=== PATIENT | male | born 1995 | race Caucasian/White ===

== ENCOUNTER 2019-03-31 14:41 | Outpatient (CLI) | payer BC ==
--- NOTE | 2019-03-31 16:43 | RAD ---
EXAM: LEFT RIBS THREE VIEWS: 03/31/19 HISTORY: Reinjury of left ribs with left rib pain. COMPARISON: 03/23/2019. FINDINGS: No convincing evidence for acute left rib fracture. No pneumothorax or pleural effusion. IMPRESSION: No convincing evidence for acute left rib fracture or other acute process. No significant change from 03/23/19. POS: [facility]
== END 2019-03-31 14:42 | disposition home or self-care (01) ==
LOC: MADRAD 14:41
PROVIDERS: ATTEND Family Medicine
DX: R07.81 Pleurodynia (principal)

== ENCOUNTER 2019-09-20 18:55 | Emergency (ER) | payer BC, SELFPAY ==
[2019-09-20] MEDS ORDERED: Lidocaine 1% w/Epinephrine 1:100K 20 ML VIAL ONE (19:13)
== END 2019-09-20 19:40 | disposition home or self-care (01) ==
LOC: MADERS 18:55
DX: S61.213A Laceration without foreign body of left middle finger without damage to nail, initial encounter (principal); F17.220 Nicotine dependence, chewing tobacco, uncomplicated; W26.0XXA Contact with knife, initial encounter
CPT/HCPCS: 12001

== ENCOUNTER 2019-10-27 14:32 | Emergency (ER) | payer SELFPAY ==
[2019-10-27] MEDS ORDERED: Thiamine HCl 200 MG/2 ML VIAL ONE (14:50)
[2019-10-27 14:54] LABS: #Basophils 0.1 thou/uL (0.0-0.2); #Eosinphils 0.1 thou/uL (0.0-0.7); #Lymphocytes 3.5 thou/uL (1.20-3.40); #Monocytes 0.6 thou/uL (0.11-0.59); %Basophils 1.3 % (0.0-1.0); %Eosinophils 1.3 % (0.0-10.0); %Lymphocytes 37.3 % (21.0-51.0); %Monocytes 6.8 % (0.0-10.0); %Neutrophils 53.3 % (42.0-75.0); Hemoglobin 16.4 g/dL (14.0-18.0); Mean Corpuscular HGB CONC 35.1 g/dL (32.0-36.0); Mean Corpuscular Hemoglobin 30.1 pg (27.0-31.0); Mean Corpuscular Volume 85.8 fL (78.0-98.0); Mean Platelet Volume 7.6 fL (7.4-10.4); Platelet Count 260 thou/uL (130-400); Red Blood Cell (RBC) Count 5.46 mill/uL (4.70-6.10); White Blood Cell (WBC) Count 9.4 thou/uL (4.8-10.8)
[2019-10-27 15:05] LABS: ALT (SGPT) 18 U/L (8-55); AST (SGOT) 15 U/L (5-34); Albumin 4.6 g/dL (3.5-5.0); Alkaline Phosphatase 75 U/L (40-110); Anion Gap 16 mmol/L (10-20); BUN (Urea Nitrogen) 8 mg/dL (8.9-20.6); Bilirubin, Total 0.5 mg/dL (0.2-1.2); CK (CPK) 117 U/L (30-200); Calc. Creatinine Clearance 0 mL/min (70-130); Calcium 9.2 mg/dL (7.8-10.44); Carbon Dioxide 25 mmol/L (22-29); Chloride 102 mmol/L (98-107); Globulin 2.5 g/dL (2.4-3.5); Glucose 121 mg/dL (70-105); Potassium 3.1 mmol/L (3.5-5.1); Protein, Total 7.1 g/dL (6.0-8.3); Sodium 140 mmol/L (136-145)
[2019-10-27 15:06] LABS: Acetaminophen Less than 6.0 mcg/mL (10.0-30.0); Alcohol 87 mg/dL (Less than 10); Magnesium 2.1 mg/dL (1.6-2.6); Salicylate Less than 8.0 mg/dL (15.0-30.0)
[2019-10-27] MEDS ORDERED: NS 0.9% w/ 20 MEQ KCL 1,000 ML ONE (15:23)
[2019-10-27] MEDS ORDERED: Sodium Chloride 0.9% 1,000 ML ONE (15:23)
[2019-10-27] MEDS ORDERED: Lorazepam 2 MG/ML VIAL ONE (15:51)
[2019-10-27] MEDS ORDERED: Midazolam HCl 2 mg/2 ml Vial ONE (15:51)
[2019-10-27 16:12] LABS: Bilirubin Negative (Negative); Blood, Urine Small (Negative); Glucose, Urine (Dipstick) Negative (Negative); Ketone, Urine Negative (Negative); Leukocyte Negative (Negative); Nitrite Negative (Negative); Protein, Urine (Dipstick) Negative (Neg-Trace); Urobilinogen 0.2 mg/dL (Less than 2); pH, Urine 6.5 (5.0-9.0)
[2019-10-27 16:14] LABS: Clarity Hazy (Clear)
[2019-10-27 16:16] LABS: RBC/HPF 0-3 HPF (0-3); WBC/HPF 0-3 HPF (0-3)
[2019-10-27 16:17] LABS: Amphetamine Detected (NotDetected); Bacteria/HPF Rare-Few HPF (None Seen); Barbiturates Screen Not Detected (NotDetected); Benzodiazepine Screen Not Detected (NotDetected); Cocaine Metabolite Screen Not Detected (NotDetected); Methadone Not Detected (NotDetected); Methamphetamine Detected (NotDetected); Opiate Screen Not Detected (NotDetected); Oxycodone Screen Not Detected (NotDetected); Phencyclidine (PCP) Not Detected (NotDetected); THC/Cannabinoid Screen Not Detected (NotDetected); Tricyclic Screen Not Detected (NotDetected)
[2019-10-27 16:18] LABS: Medtox Control Line Valid? VALID (VALID)
--- NOTE | 2019-10-27 17:19 | CT ---
Exam: Head CT without contrast HISTORY: Seizure. Altered mental status. COMPARISON: 08/14/2015 FINDINGS: Hemorrhage: No intraparenchymal hemorrhage or extra-axial hematoma. Brain parenchyma: Cortical benitez-white matter differentiation is preserved. No mass effect or midline shift. Basilar cisterns are patent. Ventricular system: Ventricles and sulci are patent and symmetric. Calvarium: Intact. Sinuses and mastoid air cells: Adequate aeration. IMPRESSION: No acute intracranial process.
--- NOTE | 2019-10-27 17:24 | CT ---
Exam: CT cervical spine without contrast HISTORY: Trauma. Pain. COMPARISON: 07/14/2015 FINDINGS: No craniocervical dissociation. Appropriate alignment of the lateral masses of C1 and C2. Intact odon toid process Appropriate alignment of the facets. No abnormal alignment. Endotracheal and nasogastric tube are identified and incompletely evaluated. Soft tissue neck structures: No mass, lymphadenopathy or hematoma. No prevertebral soft tissue swelli ng. Upper mediastinum and lung apices: Unremarkable Central spinal canal: Neural foramina and central spinal canal are patent. Evaluation is limited by t echnique Vertebral bodies: Cervical spine vertebral body height is maintained. No fracture. IMPRESSION: 1. No fracture.
[2019-10-27 17:43] LABS: Lactic Acid 1.5 mmol/L (0.5-2.2)
== END 2019-10-27 21:45 | disposition home or self-care (01) ==
LOC: MADERS 14:32
DX: R56.9 Unspecified convulsions (principal); F10.129 Alcohol abuse with intoxication, unspecified; F15.10 Other stimulant abuse, uncomplicated; E87.6 Hypokalemia; F17.220 Nicotine dependence, chewing tobacco, uncomplicated
CPT/HCPCS: 36415; 51701; 70450; 72125; 80053; 80306; 80307; 81003; 81015; 82550; 83605; 83735; 84443; 85025; 96361; 96365; 96372; 96375; J2060; J2250; J3411; J3480; J7050

== ENCOUNTER 2020-08-24 22:07 | Emergency (ER) | payer SELFPAY ==
[2020-08-24] MEDS ORDERED: Boostrix 0.5 ML (Tdap) VIAL ONE (22:15)
[2020-08-24] MEDS ORDERED: Fluorescein Opthalmic Strip ONE (22:15)
[2020-08-24] MEDS ORDERED: Tetracaine 0.5% PF 4 ML BOT ONE (22:15)
[2020-08-24] MEDS ORDERED: Erythromycin Base 0.5% Ophth Oint 3.5 gm Tube ONE (22:25)
[2020-08-24] MEDS ORDERED: Ibuprofen 800 MG TAB ONE (22:25)
== END 2020-08-24 22:36 | disposition home or self-care (01) ==
LOC: MADERS 22:07
DX: H18.891 Other specified disorders of cornea, right eye (principal); Z23 Encounter for immunization; F17.220 Nicotine dependence, chewing tobacco, uncomplicated
CPT/HCPCS: 90471; 90715

== ENCOUNTER 2020-10-24 09:37 | Emergency (ER) | payer SELFPAY ==
[2020-10-24] MEDS ORDERED: Sodium Chloride 0.9% 1,000 ML ONE (10:02)
[2020-10-24 10:29] LABS: #Basophils 0.1 thou/uL (0.0-0.2); #Eosinphils 0.2 thou/uL (0.0-0.7); #Lymphocytes 2.2 thou/uL (1.20-3.40); #Monocytes 0.5 thou/uL (0.11-0.59); #Neutrophils 2.9 thou/uL (1.40-6.50); %Eosinophils 3.1 % (0.0-10.0); %Lymphocytes 37.4 % (21.0-51.0); %Monocytes 8.9 % (0.0-10.0); %Neutrophils 49.7 % (42.0-75.0); Hemoglobin 17.1 g/dL (14.0-18.0); Mean Corpuscular HGB CONC 34.1 g/dL (32.0-36.0); Mean Corpuscular Hemoglobin 30.1 pg (27.0-31.0); Mean Corpuscular Volume 88.3 fL (78.0-98.0); Mean Platelet Volume 8.3 fL (7.4-10.4); Platelet Count 242 thou/uL (130-400); RBC Distribution Width 11.5 % (11.5-14.5); White Blood Cell (WBC) Count 5.8 thou/uL (4.8-10.8)
[2020-10-24 10:58] LABS: ALT (SGPT) 17 U/L (8-55); AST (SGOT) 14 U/L (5-34); Albumin 4.3 g/dL (3.5-5.0); Alkaline Phosphatase 69 U/L (40-110); Anion Gap 13 mmol/L (10-20); BUN (Urea Nitrogen) 12 mg/dL (8.9-20.6); Bilirubin, Total 0.6 mg/dL (0.2-1.2); CK (CPK) 75 U/L (30-200); Calc. Creatinine Clearance 0 mL/min (70-130); Calcium 9.7 mg/dL (7.8-10.44); Carbon Dioxide 25 mmol/L (22-29); Chloride 104 mmol/L (98-107); Globulin 2.7 g/dL (2.4-3.5); Glucose 91 mg/dL (70-105); Potassium 4.1 mmol/L (3.5-5.1); Sodium 138 mmol/L (136-145)
[2020-10-24 11:33] LABS: Bilirubin Negative (Negative); Blood, Urine Negative (Negative); Clarity Clear (Clear); Glucose, Urine (Dipstick) Negative (Negative); Ketone, Urine Negative (Negative); Leukocyte Negative (Negative); Nitrite Negative (Negative); Protein, Urine (Dipstick) Negative (Neg-Trace); Urobilinogen 0.2 mg/dL (Less than 2); pH, Urine 7.5 (5.0-9.0)
[2020-10-25 00:44] LABS: SARS-CoV-2 PCR by NAA Not Detected (NotDetected)
== END 2020-10-24 12:00 | disposition home or self-care (01) ==
LOC: MADERS 09:37
DX: R50.9 Fever, unspecified (principal); R51.9 Headache, unspecified; R42 Dizziness and giddiness; R53.1 Weakness; R19.7 Diarrhea, unspecified; R53.83 Other fatigue; Z20.822 Contact with and (suspected) exposure to COVID-19; F17.220 Nicotine dependence, chewing tobacco, uncomplicated
CPT/HCPCS: 80053; 81003; 82550; 85025; 99284; J7050; U0003; U0005

== ENCOUNTER 2021-04-24 14:23 | Emergency (ER) | payer SELFPAY ==
[2021-04-25 01:00] LABS: SARS-CoV-2 PCR by NAA Not Detected (NotDetected)
== END 2021-04-24 15:14 | disposition home or self-care (01) ==
LOC: MADERS 14:23
DX: J06.9 Acute upper respiratory infection, unspecified (principal); Z20.822 Contact with and (suspected) exposure to COVID-19; F17.220 Nicotine dependence, chewing tobacco, uncomplicated; Z79.899 Other long term (current) drug therapy
CPT/HCPCS: 99283; U0003; U0005

== ENCOUNTER 2021-11-04 11:21 | Emergency (ER) | payer OTHER, SELFPAY | END 2021-11-04 12:37 | disposition home or self-care (01) | LOC: MADERS 11:21 | DX: S29.012A Strain of muscle and tendon of back wall of thorax, initial encounter (principal); X50.0XXA Overexertion from strenuous movement or load, initial encounter; Y93.F2 Activity, caregiving, lifting | CPT/HCPCS: 99283 ==

== ENCOUNTER 2022-06-16 11:53 | Emergency (ER) | payer SELFPAY | END 2022-06-16 13:46 | disposition left against medical advice (07) | LOC: MADERS 11:53 | DX: Z53.21 Procedure and treatment not carried out due to patient leaving prior to being seen by health care provider (principal) ==

== ENCOUNTER 2024-12-25 11:12 | Emergency (ER) | payer OTHER ==
[2024-12-25] MEDS ORDERED: Pantoprazole 40 MG DR.TAB ONE (11:27)
[2024-12-25 11:38] LABS: #Basophils 0.1 thou/uL (0.0-0.2); #Eosinophils 0.0 thou/uL (0.0-0.7); #Lymphocytes 1.7 thou/uL (1.20-3.40); #Monocytes 0.4 thou/uL (0.11-0.59); #Neutrophils 2.6 thou/uL (1.40-6.50); %Basophils 1.3 % (0.0-1.0); %Eosinophils 0.9 % (0.0-10.0); %Lymphocytes 35.7 % (21.0-51.0); %Monocytes 8.2 % (0.0-10.0); %Neutrophils 53.9 % (42.0-75.0); Hematocrit 51.3 % (42.0-52.0); Hemoglobin 18.2 g/dL (14.0-18.0); Mean Corpuscular Hemoglobin 30.3 pg (27.0-31.0); Mean Corpuscular Volume 85.5 fl (78.0-98.0); Platelet Count 226 10x3/uL (130-400); Red Blood Cell (RBC) Count 6.00 mill/uL (4.70-6.10); White Blood Cell (WBC) Count 4.8 10x3/uL (4.8-10.8)
[2024-12-25] MEDS ORDERED: Acetaminophen 500 MG TAB ONE (11:50)
[2024-12-25 11:56] LABS: ALT (SGPT) 27 U/L (Less than 45); AST (SGOT) 20 U/L (11-34); Albumin 5.1 g/dL (3.1-4.5); Alkaline Phosphatase 75 U/L (40-110); Anion Gap 16 mmol/L (10-20); BUN (Urea Nitrogen) 10 mg/dL (8.9-20.6); Bilirubin, Total 0.8 mg/dL (0.3-1.2); Calc. Creatinine Clearance 0 mL/min (70-130); Calcium 9.5 mg/dL (7.8-10.44); Carbon Dioxide 26 mmol/L (22-29); Chloride 106 mmol/L (98-107); Globulin 2.5 g/dL (2.4-3.5); Glucose 91 mg/dL (70-105); Potassium 4.0 mmol/L (3.5-5.1); Sodium 144 mmol/L (136-145)
== END 2024-12-25 12:24 | disposition home or self-care (01) ==
LOC: MADERS 11:12
DX: K29.21 Alcoholic gastritis with bleeding (principal); G44.209 Tension-type headache, unspecified, not intractable; Z87.891 Personal history of nicotine dependence
CPT/HCPCS: 36415; 80053; 85025; 87428; 99284; Q0162